=== PATIENT | female | born 1995 | race Caucasian/White ===

== ENCOUNTER 2017-05-24 11:26 | Emergency (ER) | payer MEDICAID ==
[~2017-05-24] VITALS: Ht 162.6 cm; Wt 111.4 kg
[~2017-05-24 11:26] MED LIST: COMP1EAC INH
[2017-05-24 12:19] LABS: BASOPHILS % (AUTO) 0.3 % (0-1); EOSINOPHILS # (AUTO) 0.1 X10'3 (0-0.9); EOSINOPHILS % (AUTO) 1.9 % (0-6); HEMATOCRIT 37.6 % (35.0-45.0); HEMOGLOBIN 12.6 g/dl (12.0-16.0); LYMPHOCYTES # (AUTO) 2.1 X10'3 (1.1-4.8); LYMPHOCYTES % (AUTO) 30.9 % (21-51); MEAN CORPUSCULAR HEMOGLOBIN 25.3 PG (27.0-31.0); MEAN CORPUSCULAR HGB CONC 33.6 % (33.0-36.5); MEAN CORPUSCULAR VOLUME 75.4 FL (78-98); MEAN PLATELET VOLUME 7.1 FL (7.4-10.4); MONOCYTES # (AUTO) 0.5 X10'3 (0-0.9); MONOCYTES % (AUTO) 7.1 % (2-12); NEUTROPHILS # (AUTO) 4.1 X10'3 (1.8-7.7); NEUTROPHILS % (AUTO) 59.8 % (42-75); PLATELET COUNT 276 X10'3 (140-440); RED BLOOD COUNT 4.99 X10'6 (4.20-5.60); RED CELL DISTRIBUTION WIDTH 15.3 % (11.5-14.5); WHITE BLOOD COUNT 6.8 X10'3 (4.5-11.0)
[2017-05-24 12:21] LABS: URINE HCG NEGATIVE (NEG)
[2017-05-24 12:23] LABS: CLARITY,URINE Clear (Clear); COLOR,URINE Yellow (Yellow); GLUCOSE, URINE Negative (Neg); KETONES,URINE Negative (Neg); LEUKOCYTE ESTERASE ,URINE Negative (Neg); NITRITES, URINE Negative (Neg); OCCULT BLOOD,URINE Negative (Neg); PROTEIN,URINE Negative (Neg); UROBILINOGEN,URINE 0.2 E.U/dL (0.2-1.0)
[2017-05-24 12:27] LABS: UA COLLECTION TYPE CLN CATCH MIDSTREAM
[2017-05-24 12:34] LABS: ALANINE AMINOTRANSFERASE 37 U/L (12-78); ALBUMIN 3.4 G/DL (3.4-5.0); ALKALINE PHOSPHATASE 33 IU/L (46-116); ANION GAP 7 (8-16); ASPARTATE AMINO TRANSFERASE 18 U/L (10-37); BILIRUBIN,TOTAL 0.3 MG/DL (0.1-1.0); BLOOD UREA NITROGEN 13 MG/DL (7-18); BUN/CREATININE RATIO 16.3 (6.6-38.0); CALCIUM 8.8 MG/DL (8.5-10.1); CHLORIDE 106 MMOL/L (99-107); GLUCOSE 87 MG/DL (70-104); LIPASE 118 U/L (73-393); SODIUM 139 MMOL/L (135-145); TOTAL CARBON DIOXIDE 26.2 MMOL/L (24-32); TOTAL PROTEIN 6.9 G/DL (6.4-8.2); eGFR 88 ML/MIN
[2017-05-24] MEDS ORDERED: HYDROcodone/acetaminophen 5mg/325mg tablet PO ONE (12:50)
[2017-05-24] MEDS ORDERED: HYDR-3965 PO (13:42)
[2017-05-24 13:51] VITALS: BP 123/60
== END 2017-05-24 14:08 | disposition home or self-care (01) ==
LOC: ER 11:27
DX: N83.202 Unspecified ovarian cyst, left side (principal); R10.32 Left lower quadrant pain; R10.31 Right lower quadrant pain; J45.909 Unspecified asthma, uncomplicated; Z88.1 Allergy status to other antibiotic agents
CPT/HCPCS: 36415; 76830; 76856; 80053; 81003; 81025; 83690; 85025; 85610; 99285

== ENCOUNTER 2018-06-12 17:45 | Emergency (ER) | payer MEDICAID ==
[~2018-06-12] VITALS: Ht 157.5 cm; Wt 110.0 kg
[2018-06-12 18:45] VITALS: BP 118/97
== END 2018-06-12 18:46 | disposition home or self-care (01) ==
LOC: ER 17:46
DX: M25.562 Pain in left knee (principal); J45.909 Unspecified asthma, uncomplicated; Z88.0 Allergy status to penicillin; Z88.1 Allergy status to other antibiotic agents
CPT/HCPCS: 29505; 73564; 99284

== ENCOUNTER 2018-11-07 14:43 | Emergency (ER) | payer MEDICAID ==
[~2018-11-07] VITALS: Ht 162.6 cm; Wt 111.4 kg
[2018-11-07 15:59] LABS: ALANINE AMINOTRANSFERASE 27 U/L (12-78); ALBUMIN 3.7 G/DL (3.4-5.0); ALKALINE PHOSPHATASE 40 IU/L (46-116); ANION GAP 12 (8-16); ASPARTATE AMINO TRANSFERASE 15 U/L (10-37); BILIRUBIN,TOTAL 0.4 MG/DL (0.1-1.0); BLOOD UREA NITROGEN 13 MG/DL (7-18); BUN/CREATININE RATIO 15.7 (6.6-38.0); CALCIUM 9.1 MG/DL (8.5-10.1); CHLORIDE 105 MMOL/L (99-107); CREATININE 0.83 MG/DL (0.40-0.90); GLUCOSE 84 MG/DL (70-104); SODIUM 139 MMOL/L (135-145); TOTAL CARBON DIOXIDE 21.7 MMOL/L (24-32); TOTAL PROTEIN 7.5 G/DL (6.4-8.2); eGFR 84 ML/MIN
[2018-11-07 16:07] LABS: BASOPHILS % (AUTO) 0.3 % (0-1); EOSINOPHILS # (AUTO) 0.1 X10'3 (0-0.9); EOSINOPHILS % (AUTO) 1.2 % (0-6); HEMATOCRIT 45.1 % (35.0-45.0); HEMOGLOBIN 15.2 g/dl (12.0-16.0); LYMPHOCYTES # (AUTO) 2.7 X10'3 (1.1-4.8); LYMPHOCYTES % (AUTO) 38.3 % (21-51); MEAN CORPUSCULAR HEMOGLOBIN 28.3 PG (27.0-31.0); MEAN CORPUSCULAR HGB CONC 33.6 g/dL (33.0-36.5); MEAN CORPUSCULAR VOLUME 84.2 FL (78-98); MEAN PLATELET VOLUME 7.1 FL (7.4-10.4); MONOCYTES # (AUTO) 0.4 X10'3 (0-0.9); MONOCYTES % (AUTO) 6.4 % (2-12); NEUTROPHILS # (AUTO) 3.7 X10'3 (1.8-7.7); NEUTROPHILS % (AUTO) 53.8 % (42-75); PLATELET COUNT 282 X10'3 (140-440); RED BLOOD COUNT 5.36 X10'6 (4.20-5.60); RED CELL DISTRIBUTION WIDTH 13.8 % (11.5-14.5); WHITE BLOOD COUNT 6.9 X10'3 (4.5-11.0)
[2018-11-07] MEDS ORDERED: normal saline 1000ML IV soln IVB ONE (16:10)
[2018-11-07] MEDS ORDERED: morphine 4 MG/ML inj SYRINge IV PRN (16:10)
[2018-11-07] MEDS ORDERED: ondansetron/PF 4mg/2ml inj IV ONE (16:10)
[2018-11-07 16:18] LABS: URINE HCG NEGATIVE (NEG)
[2018-11-07 16:22] LABS: CLARITY,URINE SLIGHTLY CLOUDY (Clear); COLOR,URINE YELLOW (Yellow); GLUCOSE, URINE NEGATIVE (Neg); KETONES,URINE NEGATIVE (Neg); LEUKOCYTE ESTERASE ,URINE NEGATIVE (Neg); NITRITES, URINE NEGATIVE (Neg); OCCULT BLOOD,URINE NEGATIVE (Neg); PH,URINE 7.5 (4.8-8.0); PROTEIN,URINE NEGATIVE (Neg); UROBILINOGEN,URINE 0.2 E.U/dL (0.2-1.0)
[2018-11-07 16:23] LABS: UA COLLECTION TYPE CLN CATCH MIDSTREAM
[2018-11-07 16:29] LABS: BACTERIA,URINE NONE SEEN /HPF (Neg); RBC,URINE NONE SEEN /HPF (0-2); SQUAMOUS EPITHELIAL CELL,UR MODERATE /LPF (FEW); WBC,URINE NONE SEEN /HPF (0-4)
--- NOTE | 2018-11-07 16:30 | NUR ---
PT. OFF TO CT WITH AREA FORESTER VIA W/C
--- NOTE | 2018-11-07 16:38 | NUR ---
PT. BACK FROM CT WITH REPORT WRITER VIA W/C
[2018-11-07] MEDS ORDERED: TRAM50TA2 PO (17:07)
[2018-11-07] MEDS ORDERED: diphenhydrAMINE 50 mg/ml inj IV ONE (17:10)
[2018-11-07 18:11] VITALS: BP 102/62
== END 2018-11-07 18:12 | disposition home or self-care (01) ==
LOC: ER 14:44
DX: R10.32 Left lower quadrant pain (principal); R42 Dizziness and giddiness; R06.02 Shortness of breath; R11.10 Vomiting, unspecified; J45.909 Unspecified asthma, uncomplicated; Z88.0 Allergy status to penicillin; Z88.1 Allergy status to other antibiotic agents; Z91.09 Other allergy status, other than to drugs and biological substances; Z79.899 Other long term (current) drug therapy
CPT/HCPCS: 36415; 74176; 80053; 81001; 81025; 85025; 85610; 96361; 96374; 96375; 99284; J1200; J2270; J2405; J7030

== ENCOUNTER 2019-07-04 16:26 | Emergency (ER) | payer MEDICAID ==
[~2019-07-04] VITALS: Ht 162.6 cm; Wt 115.0 kg
[2019-07-04 17:49] LABS: BASOPHILS % (AUTO) 0.6 % (0-1); EOSINOPHILS # (AUTO) 0.1 X10'3 (0-0.9); HEMATOCRIT 42.9 % (35.0-45.0); HEMOGLOBIN 14.8 g/dl (12.0-16.0); LYMPHOCYTES # (AUTO) 2.2 X10'3 (1.1-4.8); LYMPHOCYTES % (AUTO) 33.8 % (21-51); MEAN CORPUSCULAR HEMOGLOBIN 28.1 PG (27.0-31.0); MEAN CORPUSCULAR HGB CONC 34.4 g/dL (33.0-36.5); MEAN CORPUSCULAR VOLUME 81.9 FL (78-98); MONOCYTES # (AUTO) 0.6 X10'3 (0-0.9); MONOCYTES % (AUTO) 8.6 % (2-12); NEUTROPHILS # (AUTO) 3.6 X10'3 (1.8-7.7); PLATELET COUNT 276 X10'3 (140-440); RED BLOOD COUNT 5.24 X10'6 (4.20-5.60); RED CELL DISTRIBUTION WIDTH 13.3 % (11.5-14.5); WHITE BLOOD COUNT 6.5 X10'3 (4.5-11.0)
[2019-07-04 17:50] LABS: ALANINE AMINOTRANSFERASE 23 U/L (12-78); ALBUMIN 3.5 G/DL (3.4-5.0); ALKALINE PHOSPHATASE 39 IU/L (46-116); ANION GAP 8 (8-16); ASPARTATE AMINO TRANSFERASE 12 U/L (10-37); BILIRUBIN,TOTAL 0.4 MG/DL (0.1-1.0); BLOOD UREA NITROGEN 12 MG/DL (7-18); BUN/CREATININE RATIO 12.4 (6.6-38.0); CHLORIDE 108 MMOL/L (99-107); CREATININE 0.97 MG/DL (0.40-0.90); GLUCOSE 111 MG/DL (70-104); POTASSIUM 3.6 MMOL/L (3.5-5.1); SODIUM 140 MMOL/L (135-145); TOTAL CARBON DIOXIDE 24.3 MMOL/L (24-32); eGFR 69 ML/MIN
[2019-07-04 17:58] LABS: BETA HCG,QUANTITATIVE < 1.0 mIU/ml; LIPASE 134 U/L (73-393)
[2019-07-04 18:16] LABS: URINE HCG NEGATIVE (NEG)
[2019-07-04] MEDS ORDERED: HYDR-3965 PO (18:23)
[2019-07-04] MEDS ORDERED: proCHLORperazine 10 MG/2 ml inj IM ONE (18:25)
[2019-07-04] MEDS ORDERED: morphine 4 MG/ML inj SYRINge IM ONE (18:25)
[2019-07-04 18:41] LABS: CLARITY,URINE CLEAR (Clear); COLOR,URINE YELLOW (Yellow); GLUCOSE, URINE NEGATIVE (Neg); KETONES,URINE NEGATIVE (Neg); LEUKOCYTE ESTERASE ,URINE NEGATIVE (Neg); NITRITES, URINE NEGATIVE (Neg); OCCULT BLOOD,URINE MODERATE (Neg); PH,URINE 5.5 (4.8-8.0); PROTEIN,URINE NEGATIVE (Neg); UROBILINOGEN,URINE 0.2 E.U/dL (0.2-1.0)
[2019-07-04 18:56] LABS: UA COLLECTION TYPE CLN CATCH MIDSTREAM
[2019-07-04 18:58] LABS: RBC,URINE 0-2 /HPF (0-2); WBC,URINE 0-4 /HPF (0-4)
[2019-07-04 18:59] LABS: BACTERIA,URINE NONE SEEN /HPF (Neg); SQUAMOUS EPITHELIAL CELL,UR FEW /LPF (FEW)
[2019-07-04 21:15] VITALS: BP 150/89
== END 2019-07-04 21:16 | disposition home or self-care (01) ==
LOC: ER 16:26
DX: N93.9 Abnormal uterine and vaginal bleeding, unspecified (principal); R19.7 Diarrhea, unspecified; R11.0 Nausea; J45.909 Unspecified asthma, uncomplicated; Z88.0 Allergy status to penicillin; Z91.048 Other nonmedicinal substance allergy status; Z88.1 Allergy status to other antibiotic agents; Z79.899 Other long term (current) drug therapy
CPT/HCPCS: 36415; 80053; 81001; 81025; 83690; 84702; 85025; 96372; 99284; J0780; J2270

== ENCOUNTER 2019-11-30 14:01 | Emergency (ER) | payer MEDICAID ==
[~2019-11-30] VITALS: Ht 162.6 cm; Wt 107.0 kg
[2019-11-30 14:39] LABS: BASOPHILS % (AUTO) 0.4 % (0-1); EOSINOPHILS # (AUTO) 0.1 X10'3 (0-0.9); EOSINOPHILS % (AUTO) 1.3 % (0-6); HEMATOCRIT 42.4 % (35.0-45.0); HEMOGLOBIN 14.3 g/dl (12.0-16.0); LYMPHOCYTES # (AUTO) 2.5 X10'3 (1.1-4.8); LYMPHOCYTES % (AUTO) 35.7 % (21-51); MEAN CORPUSCULAR HEMOGLOBIN 27.7 PG (27.0-31.0); MEAN CORPUSCULAR HGB CONC 33.8 g/dL (33.0-36.5); MEAN CORPUSCULAR VOLUME 82.1 FL (78-98); MONOCYTES # (AUTO) 0.4 X10'3 (0-0.9); MONOCYTES % (AUTO) 5.8 % (2-12); NEUTROPHILS % (AUTO) 56.8 % (42-75); PLATELET COUNT 265 X10'3 (140-440); RED BLOOD COUNT 5.16 X10'6 (4.20-5.60); RED CELL DISTRIBUTION WIDTH 13.3 % (11.5-14.5)
[2019-11-30 14:58] LABS: ALANINE AMINOTRANSFERASE 33 U/L (12-78); ALBUMIN 3.5 G/DL (3.4-5.0); ALKALINE PHOSPHATASE 32 IU/L (46-116); ANION GAP 8 (8-16); ASPARTATE AMINO TRANSFERASE 16 U/L (10-37); BILIRUBIN,TOTAL 0.4 MG/DL (0.1-1.0); BLOOD UREA NITROGEN 15 MG/DL (7-18); BUN/CREATININE RATIO 18.5 (6.6-38.0); CALCIUM 8.8 MG/DL (8.5-10.1); CHLORIDE 105 MMOL/L (99-107); CREATININE 0.81 MG/DL (0.40-0.90); GLUCOSE 86 MG/DL (70-104); LIPASE 144 U/L (73-393); POTASSIUM 3.8 MMOL/L (3.5-5.1); SODIUM 140 MMOL/L (135-145); TOTAL CARBON DIOXIDE 26.8 MMOL/L (24-32); TOTAL PROTEIN 6.9 G/DL (6.4-8.2); eGFR 85 ML/MIN
[2019-11-30] MEDS ORDERED: dexamethasone sod phosphate 10mg/ml inj IV STA (15:01)
[2019-11-30] MEDS ORDERED: proCHLORperazine 10 MG/2 ml inj IV ONE (15:05)
[2019-11-30] MEDS ORDERED: diphenhydrAMINE 50 mg/ml inj IV ONE (15:05)
[2019-11-30] MEDS ORDERED: ketorolac tromethamine 15mg/ml inj. IV ONE (15:05)
[2019-11-30] MEDS ORDERED: normal saline 1000ML IV soln IVB ONE (15:05)
--- NOTE | 2019-11-30 15:53 | NUR ---
PT IS SLEEPING LAYING SUPINE.
[2019-11-30 15:59] LABS: CLARITY,URINE CLOUDY (Clear); COLOR,URINE YELLOW (Yellow); GLUCOSE, URINE NEGATIVE (Neg); KETONES,URINE NEGATIVE (Neg); LEUKOCYTE ESTERASE ,URINE NEGATIVE (Neg); NITRITES, URINE NEGATIVE (Neg); OCCULT BLOOD,URINE NEGATIVE (Neg); PROTEIN,URINE NEGATIVE (Neg); URINE HCG NEGATIVE (NEG); UROBILINOGEN,URINE 0.2 E.U/dL (0.2-1.0)
[2019-11-30 16:12] LABS: UA COLLECTION TYPE CLN CATCH MIDSTREAM
[2019-11-30 16:16] LABS: BACTERIA,URINE 2+ /HPF (Neg); MUCUS STRANDS MANY /LPF (Neg); RBC,URINE NONE SEEN /HPF (0-2); SQUAMOUS EPITHELIAL CELL,UR FEW /LPF (FEW)
[2019-11-30 16:31] VITALS: BP 130/77
== END 2019-11-30 16:28 | disposition home or self-care (01) ==
LOC: ER 14:02
DX: G43.909 Migraine, unspecified, not intractable, without status migrainosus (principal); J45.909 Unspecified asthma, uncomplicated; K21.9 Gastro-esophageal reflux disease without esophagitis; R42 Dizziness and giddiness; R11.2 Nausea with vomiting, unspecified; R07.89 Other chest pain; H53.8 Other visual disturbances; Z98.890 Other specified postprocedural states; Z88.0 Allergy status to penicillin; Z88.1 Allergy status to other antibiotic agents; Z79.899 Other long term (current) drug therapy; Z91.09 Other allergy status, other than to drugs and biological substances
CPT/HCPCS: 36415; 80053; 81001; 81025; 83690; 85025; 87088; 96361; 96374; 96375; 99284; J0780; J1100; J1200; J1885; J7030

== ENCOUNTER 2020-02-23 11:24 | Emergency (ER) | payer MEDICAID ==
[~2020-02-23] VITALS: Ht 162.6 cm; Wt 115.0 kg
[2020-02-23] MEDS ORDERED: epiNEPHrine 1 mg/ml inj ONE (11:36)
[2020-02-23] MEDS ORDERED: epiNEPHrine 1 mg/ml inj IM STA (11:38)
[2020-02-23] MEDS ORDERED: methylPREDNISolone sod succ 125mg/2ml vial IM ONE (11:40)
[2020-02-23] MEDS ORDERED: EPIN0.3P3 IM (11:47)
[2020-02-23 13:21] VITALS: BP 130/76
== END 2020-02-23 13:25 | disposition home or self-care (01) ==
LOC: ER 11:24
DX: R22.0 Localized swelling, mass and lump, head (principal); T39.315A Adverse effect of propionic acid derivatives, initial encounter; G43.909 Migraine, unspecified, not intractable, without status migrainosus; J45.909 Unspecified asthma, uncomplicated; K21.9 Gastro-esophageal reflux disease without esophagitis; Z98.890 Other specified postprocedural states; Z88.0 Allergy status to penicillin; Z88.1 Allergy status to other antibiotic agents; Z79.899 Other long term (current) drug therapy; Y92.89 Other specified places as the place of occurrence of the external cause
CPT/HCPCS: 96372; 99284; J0171; J2930; 99283

== ENCOUNTER 2020-05-25 17:34 | Emergency (ER) | payer MEDICAID ==
[~2020-05-25] VITALS: Ht 162.6 cm; Wt 115.0 kg
[~2020-05-25 17:34] MED LIST changes: +EPIN0.3P3 IM
[2020-05-25] MEDS ORDERED: normal saline 1000ml 1,000 ML IV ONE (18:40)
[2020-05-25] MEDS ORDERED: ondansetron/PF 4mg/2ml inj IV ONE (18:40)
[2020-05-25 19:00] LABS: BASOPHILS % (AUTO) 0.6 % (0-1); EOSINOPHILS # (AUTO) 0.1 X10'3 (0-0.9); EOSINOPHILS % (AUTO) 1.4 % (0-6); HEMATOCRIT 44.6 % (35.0-45.0); HEMOGLOBIN 15.1 g/dl (12.0-16.0); LYMPHOCYTES # (AUTO) 2.7 X10'3 (1.1-4.8); LYMPHOCYTES % (AUTO) 36.5 % (21-51); MEAN CORPUSCULAR HEMOGLOBIN 28.1 PG (27.0-31.0); MEAN CORPUSCULAR HGB CONC 33.9 g/dL (33.0-36.5); MEAN CORPUSCULAR VOLUME 82.8 FL (78-98); MEAN PLATELET VOLUME 7.1 FL (7.4-10.4); MONOCYTES # (AUTO) 0.4 X10'3 (0-0.9); NEUTROPHILS # (AUTO) 4.1 X10'3 (1.8-7.7); NEUTROPHILS % (AUTO) 55.5 % (42-75); PLATELET COUNT 285 X10'3 (140-440); RED BLOOD COUNT 5.38 X10'6 (4.20-5.60); RED CELL DISTRIBUTION WIDTH 13.2 % (11.5-14.5); WHITE BLOOD COUNT 7.4 X10'3 (4.5-11.0)
[2020-05-25 19:08] LABS: ALBUMIN 3.6 G/DL (3.4-5.0); ANION GAP 7 (8-16); BLOOD UREA NITROGEN 15 MG/DL (7-18); BUN/CREATININE RATIO 15.8 (6.6-38.0); CALCIUM 9.1 MG/DL (8.5-10.1); CHLORIDE 106 MMOL/L (99-107); CREATININE 0.95 MG/DL (0.40-0.90); GLUCOSE 89 MG/DL (70-104); SODIUM 140 MMOL/L (135-145); TOTAL CARBON DIOXIDE 27.5 MMOL/L (24-32); eGFR 71 ML/MIN
[2020-05-25] MEDS ORDERED: ONDA4TAB12 PO (19:27)
[2020-05-25 19:34] LABS: URINE HCG NEGATIVE (NEG)
[2020-05-25 19:35] LABS: CLARITY,URINE CLEAR (Clear); COLOR,URINE YELLOW (Yellow); GLUCOSE, URINE NEGATIVE (Neg); KETONES,URINE NEGATIVE (Neg); LEUKOCYTE ESTERASE ,URINE NEGATIVE (Neg); NITRITES, URINE NEGATIVE (Neg); OCCULT BLOOD,URINE TRACE-INTACT (Neg); PROTEIN,URINE NEGATIVE (Neg); UROBILINOGEN,URINE 0.2 E.U/dL (0.2-1.0)
[2020-05-25 19:36] LABS: UA COLLECTION TYPE CLN CATCH MIDSTREAM
[2020-05-25 19:44] LABS: BACTERIA,URINE NONE SEEN /HPF (Neg); MUCUS STRANDS NONE SEEN /LPF (Neg); RBC,URINE 0-2 /HPF (0-2); SQUAMOUS EPITHELIAL CELL,UR FEW /LPF (FEW); WBC,URINE 0-4 /HPF (0-4)
[2020-05-25 20:30] VITALS: BP 134/88
== END 2020-05-25 20:54 | disposition home or self-care (01) ==
LOC: ER 20:34
DX: R11.2 Nausea with vomiting, unspecified (principal); R19.7 Diarrhea, unspecified; G43.909 Migraine, unspecified, not intractable, without status migrainosus; J45.909 Unspecified asthma, uncomplicated; K21.9 Gastro-esophageal reflux disease without esophagitis; Z86.2 Personal history of diseases of the blood and blood-forming organs and certain disorders involving the immune mechanism; Z88.0 Allergy status to penicillin; Z88.2 Allergy status to sulfonamides; Z91.048 Other nonmedicinal substance allergy status; Z79.899 Other long term (current) drug therapy
CPT/HCPCS: 36415; 76937; 80048; 81001; 81025; 85025; 93005; 96361; 96374; 99284; J2405; J7030; 99285

== ENCOUNTER 2020-08-18 16:51 | Emergency (ER) | payer MEDICAID ==
[~2020-08-18] VITALS: Ht 162.6 cm; Wt 115.0 kg
[~2020-08-18 16:51] MED LIST changes: +ONDA4TAB12 PO
[2020-08-18] MEDS ORDERED: ketorolac trometh inj. 60 MG/2 ML VIAL IM ONE (18:05)
[2020-08-18] MEDS ORDERED: dicyclomine 10 MG capsule PO ONE (18:05)
[2020-08-18] MEDS ORDERED: ondansetron 4mg rapidly disintigrating tab PO ONE (18:10)
[2020-08-18 18:45] LABS: BASOPHILS % (AUTO) 0.2 % (0-1); EOSINOPHILS # (AUTO) 0.1 X10'3 (0-0.9); EOSINOPHILS % (AUTO) 0.9 % (0-6); HEMATOCRIT 41.1 % (35.0-45.0); HEMOGLOBIN 14.1 g/dl (12.0-16.0); LYMPHOCYTES # (AUTO) 2.7 X10'3 (1.1-4.8); MEAN CORPUSCULAR HEMOGLOBIN 28.3 PG (27.0-31.0); MEAN CORPUSCULAR HGB CONC 34.4 g/dL (33.0-36.5); MEAN CORPUSCULAR VOLUME 82.2 FL (78-98); MEAN PLATELET VOLUME 7.2 FL (7.4-10.4); MONOCYTES # (AUTO) 0.6 X10'3 (0-0.9); MONOCYTES % (AUTO) 6.3 % (2-12); NEUTROPHILS % (AUTO) 63.6 % (42-75); PLATELET COUNT 263 X10'3 (140-440); RED CELL DISTRIBUTION WIDTH 12.9 % (11.5-14.5); WHITE BLOOD COUNT 9.5 X10'3 (4.5-11.0)
[2020-08-18 18:53] LABS: ALANINE AMINOTRANSFERASE 23 U/L (12-78); ALBUMIN 3.4 G/DL (3.4-5.0); ALKALINE PHOSPHATASE 46 IU/L (46-116); ANION GAP 10 (8-16); ASPARTATE AMINO TRANSFERASE 14 U/L (10-37); BILIRUBIN,TOTAL 0.3 MG/DL (0.1-1.0); BLOOD UREA NITROGEN 16 MG/DL (7-18); BUN/CREATININE RATIO 12.7 (6.6-38.0); CALCIUM 9.3 MG/DL (8.5-10.1); CHLORIDE 105 MMOL/L (99-107); CREATININE 1.26 MG/DL (0.40-0.90); GLUCOSE 92 MG/DL (70-104); LIPASE 100 U/L (73-393); POTASSIUM 3.6 MMOL/L (3.5-5.1); SODIUM 140 MMOL/L (135-145); TOTAL PROTEIN 6.9 G/DL (6.4-8.2); eGFR 51 ML/MIN
--- NOTE | 2020-08-18 18:59 | NUR ---
Pt resting in bed, medicated and gave blanket and vitals taken.
--- NOTE | 2020-08-18 19:00 | NUR ---
US tech with pt
[2020-08-18] MEDS ORDERED: HYDROcodone/acetaminophen 5mg/325mg tablet PO ONE (19:20)
[2020-08-18 19:48] LABS: URINE HCG NEGATIVE (NEG)
[2020-08-18 20:04] LABS: CLARITY,URINE CLEAR (Clear); COLOR,URINE YELLOW (Yellow); GLUCOSE, URINE NEGATIVE (Neg); KETONES,URINE NEGATIVE (Neg); LEUKOCYTE ESTERASE ,URINE NEGATIVE (Neg); NITRITES, URINE NEGATIVE (Neg); OCCULT BLOOD,URINE NEGATIVE (Neg); PH,URINE 5.5 (4.8-8.0); PROTEIN,URINE NEGATIVE (Neg); UROBILINOGEN,URINE 0.2 E.U/dL (0.2-1.0)
[2020-08-18 20:12] LABS: UA COLLECTION TYPE CLN CATCH MIDSTREAM
[2020-08-18] MEDS ORDERED: HYDR-3965 PO (20:34)
[2020-08-18] MEDS ORDERED: ONDA4TAB6 PO (20:34)
[2020-08-18 20:56] VITALS: BP 151/74
== END 2020-08-18 20:57 | disposition home or self-care (01) ==
LOC: ER 16:51
DX: E28.2 Polycystic ovarian syndrome (principal); R10.30 Lower abdominal pain, unspecified; R11.0 Nausea; G43.909 Migraine, unspecified, not intractable, without status migrainosus; J45.909 Unspecified asthma, uncomplicated; K21.9 Gastro-esophageal reflux disease without esophagitis; Z86.2 Personal history of diseases of the blood and blood-forming organs and certain disorders involving the immune mechanism; Z98.890 Other specified postprocedural states; Z88.0 Allergy status to penicillin; Z88.1 Allergy status to other antibiotic agents; Z88.8 Allergy status to other drugs, medicaments and biological substances; Z79.899 Other long term (current) drug therapy
CPT/HCPCS: 36415; 76830; 76856; 80053; 81003; 81025; 83690; 85025; 93976; 96372; 99284; J1885

== ENCOUNTER 2021-01-28 09:46 | Emergency (ER) | payer MEDICAID ==
[~2021-01-28] VITALS: Ht 162.6 cm; Wt 109.8 kg
[~2021-01-28 09:46] MED LIST changes: +ONDA4TAB6 PO
[2021-01-28] MEDS ORDERED: normal saline 1000ML IV soln IVB ONE (10:00)
[2021-01-28] MEDS ORDERED: ondansetron/PF 4mg/2ml inj IV ONE (10:00)
[2021-01-28] MEDS ORDERED: morphine 4 MG/ML inj SYRINge IV PRN (10:00)
[2021-01-28 10:36] LABS: BASOPHILS % (AUTO) 0.3 % (0-1); EOSINOPHILS % (AUTO) 0.1 % (0-6); HEMATOCRIT 41.7 % (35.0-45.0); HEMOGLOBIN 14.4 g/dl (12.0-16.0); LYMPHOCYTES # (AUTO) 1.3 X10'3 (1.1-4.8); LYMPHOCYTES % (AUTO) 13.2 % (21-51); MEAN CORPUSCULAR HEMOGLOBIN 28.4 PG (27.0-31.0); MEAN CORPUSCULAR HGB CONC 34.6 g/dL (33.0-36.5); MEAN CORPUSCULAR VOLUME 81.9 FL (78-98); MEAN PLATELET VOLUME 7.3 FL (7.4-10.4); MONOCYTES # (AUTO) 0.4 X10'3 (0-0.9); MONOCYTES % (AUTO) 4.1 % (2-12); NEUTROPHILS # (AUTO) 8.4 X10'3 (1.8-7.7); NEUTROPHILS % (AUTO) 82.3 % (42-75); PLATELET COUNT 296 X10'3 (140-440); RED BLOOD COUNT 5.09 X10'6 (4.20-5.60); RED CELL DISTRIBUTION WIDTH 13.2 % (11.5-14.5); WHITE BLOOD COUNT 10.2 X10'3 (4.5-11.0)
[2021-01-28] MEDS ORDERED: LIDOcaine Viscous 15ml cup MM ONE (11:00)
[2021-01-28] MEDS ORDERED: sucralfate 1 gm tablet PO ONE (11:00)
[2021-01-28] MEDS ORDERED: mag hydrox/Alum hydrox/simeth 30ml oral suspension PO ONE (11:00)
[2021-01-28 11:10] LABS: ALANINE AMINOTRANSFERASE 87 U/L (12-78); ALBUMIN 3.6 G/DL (3.4-5.0); ALBUMIN/GLOBULIN RATIO 1.1 (1.1-1.5); ALKALINE PHOSPHATASE 60 IU/L (46-116); ANION GAP 11 (8-16); ASPARTATE AMINO TRANSFERASE 77 U/L (10-37); BILIRUBIN,TOTAL 0.7 MG/DL (0.1-1.0); BLOOD UREA NITROGEN 13 MG/DL (7-18); BUN/CREATININE RATIO 15.7 (6.6-38.0); CALCIUM 8.8 MG/DL (8.5-10.1); CHLORIDE 105 MMOL/L (99-107); CREATININE 0.83 MG/DL (0.40-0.90); GLUCOSE 110 MG/DL (70-104); POTASSIUM 3.8 MMOL/L (3.5-5.1); SODIUM 138 MMOL/L (135-145); TOTAL CARBON DIOXIDE 21.6 MMOL/L (24-32); eGFR 82 ML/MIN
[2021-01-28 11:11] LABS: LIPASE 81 U/L (73-393)
--- NOTE | 2021-01-28 11:24 | NUR ---
notified davian cross that pt is c/o abd pain but denying the morphine ,pt want torodol for pain ,as per pa he is going to see the pt and then put the orders.
[2021-01-28] MEDS ORDERED: famotidine/PF 10 mg/ml inj IV ONE (11:25)
[2021-01-28] MEDS ORDERED: ketorolac trometh. 30mg/ml inj. IV ONE (11:25)
[2021-01-28 11:29] LABS: URINE HCG NEGATIVE (NEG)
[2021-01-28 11:32] LABS: CLARITY,URINE CLEAR (Clear); COLOR,URINE YELLOW (Yellow); UA COLLECTION TYPE CLN CATCH MIDSTREAM
[2021-01-28 11:34] LABS: GLUCOSE, URINE NEGATIVE (Neg); KETONES,URINE NEGATIVE (Neg); NITRITES, URINE NEGATIVE (Neg); OCCULT BLOOD,URINE MODERATE (Neg); PROTEIN,URINE NEGATIVE (Neg)
[2021-01-28 11:35] LABS: LEUKOCYTE ESTERASE ,URINE NEGATIVE (Neg)
[2021-01-28 11:37] LABS: BACTERIA,URINE FEW /HPF (Neg); MUCUS STRANDS MODERATE /LPF (Neg); SQUAMOUS EPITHELIAL CELL,UR MANY /LPF (FEW); WBC,URINE 0-4 /HPF (0-4)
[2021-01-28 11:38] LABS: HYALINE CASTS 0-3 /LPF (NEGATIVE)
[2021-01-28 13:18] VITALS: BP 128/81
== END 2021-01-28 13:26 | disposition home or self-care (01) ==
LOC: ER 09:46
DX: R10.10 Upper abdominal pain, unspecified (principal); K21.9 Gastro-esophageal reflux disease without esophagitis; Z86.2 Personal history of diseases of the blood and blood-forming organs and certain disorders involving the immune mechanism; Z98.890 Other specified postprocedural states; Z88.0 Allergy status to penicillin; Z88.1 Allergy status to other antibiotic agents; Z88.8 Allergy status to other drugs, medicaments and biological substances; Z79.899 Other long term (current) drug therapy
CPT/HCPCS: 36415; 71045; 74176; 80053; 81001; 81025; 83690; 85025; 96361; 96374; 96375; 99285; J1885; J2405; J3490; J7030; J2270

== ENCOUNTER 2021-09-21 17:17 | Emergency (ER) | payer MEDICAID ==
[~2021-09-21] VITALS: Ht 162.6 cm; Wt 111.4 kg
[2021-09-21 17:23] VITALS: BP 126/76
[2021-09-21 18:00] LABS: BASOPHILS % (AUTO) 0.4 % (0-1); EOSINOPHILS # (AUTO) 0.1 X10'3 (0-0.9); EOSINOPHILS % (AUTO) 0.7 % (0-6); HEMATOCRIT 39.4 % (35.0-45.0); HEMOGLOBIN 13.5 g/dl (12.0-16.0); LYMPHOCYTES # (AUTO) 2.4 X10'3 (1.1-4.8); LYMPHOCYTES % (AUTO) 28.6 % (21-51); MEAN CORPUSCULAR HEMOGLOBIN 27.7 PG (27.0-31.0); MEAN CORPUSCULAR HGB CONC 34.3 g/dL (33.0-36.5); MEAN CORPUSCULAR VOLUME 80.8 FL (78-98); MEAN PLATELET VOLUME 7.2 FL (7.4-10.4); MONOCYTES # (AUTO) 0.4 X10'3 (0-0.9); MONOCYTES % (AUTO) 4.6 % (2-12); NEUTROPHILS # (AUTO) 5.6 X10'3 (1.8-7.7); NEUTROPHILS % (AUTO) 65.7 % (42-75); PLATELET COUNT 293 X10'3 (140-440); RED BLOOD COUNT 4.87 X10'6 (4.20-5.60); RED CELL DISTRIBUTION WIDTH 12.8 % (11.5-14.5); WHITE BLOOD COUNT 8.5 X10'3 (4.5-11.0)
[2021-09-21 18:03] LABS: CLARITY,URINE CLEAR (Clear); COLOR,URINE YELLOW (Yellow); GLUCOSE, URINE NEGATIVE (Neg); KETONES,URINE NEGATIVE (Neg); LEUKOCYTE ESTERASE ,URINE NEGATIVE (Neg); NITRITES, URINE NEGATIVE (Neg); OCCULT BLOOD,URINE NEGATIVE (Neg); PROTEIN,URINE NEGATIVE (Neg); UROBILINOGEN,URINE 0.2 E.U/dL (0.2-1.0)
[2021-09-21 18:04] LABS: UA COLLECTION TYPE CLN CATCH MIDSTREAM; URINE HCG NEGATIVE (NEG)
[2021-09-21 18:09] LABS: ALANINE AMINOTRANSFERASE 21 U/L (12-78); ALBUMIN 3.6 G/DL (3.4-5.0); ALBUMIN/GLOBULIN RATIO 1.1 (1.1-1.5); ALKALINE PHOSPHATASE 37 IU/L (46-116); ANION GAP 9 (8-16); ASPARTATE AMINO TRANSFERASE 10 U/L (10-37); BILIRUBIN,TOTAL 0.3 MG/DL (0.1-1.0); BLOOD UREA NITROGEN 19 MG/DL (7-18); BUN/CREATININE RATIO 20.9 (6.6-38.0); CALCIUM 8.8 MG/DL (8.5-10.1); CHLORIDE 106 MMOL/L (99-107); CREATININE 0.91 MG/DL (0.40-0.90); GLUCOSE 87 MG/DL (70-104); LIPASE 109 U/L (73-393); POTASSIUM 3.2 MMOL/L (3.5-5.1); SODIUM 141 MMOL/L (135-145); TOTAL CARBON DIOXIDE 26.1 MMOL/L (24-32); TOTAL PROTEIN 6.8 G/DL (6.4-8.2); eGFR 74 ML/MIN
[2021-09-21] MEDS ORDERED: potassium Cl 20 mEq SR tablet PO ONE (19:30)
[2021-09-21] MEDS ORDERED: mag hydrox/Alum hydrox/simeth 30ml oral suspension PO ONE (19:50)
[2021-09-21] MEDS ORDERED: LIDOcaine Viscous 15ml cup MM PRN (19:50)
[2021-09-21] MEDS ORDERED: pantoprazole 40mg Tablet.DR PO SCH (19:50)
[2021-09-21] MEDS ORDERED: ONDA4TAB12 PO (21:15)
[2021-09-21] MEDS ORDERED: LEVO750T46 PO (21:15)
[2021-09-21] MEDS ORDERED: METR-159 PO (21:15)
[2021-09-21] MEDS ORDERED: metroNIDAZOLE 500mg tablet PO ONE (21:15)
[2021-09-21] MEDS ORDERED: levoFLOXACIN 250mg tablet PO ONE (21:15)
[2021-09-25] MEDS ORDERED: OMEP20CA16 PO (13:05)
[2021-09-25] MEDS ORDERED: MONT-40 PO (13:05)
[2021-09-25] MEDS ORDERED: ONDA-103 PO (13:06)
== END 2021-09-21 22:23 | disposition home or self-care (01) ==
LOC: ER 17:18
DX: K81.0 Acute cholecystitis (principal); K21.9 Gastro-esophageal reflux disease without esophagitis; D64.9 Anemia, unspecified; J45.909 Unspecified asthma, uncomplicated; G43.909 Migraine, unspecified, not intractable, without status migrainosus; Z88.0 Allergy status to penicillin; Z88.1 Allergy status to other antibiotic agents; Z79.899 Other long term (current) drug therapy
CPT/HCPCS: 36415; 76700; 80053; 81003; 81025; 83690; 85025; 99283; 99284

== ENCOUNTER 2021-09-26 06:40 | Day surgery (SDC) | payer MEDICAID ==
[2021-09-25 13:08] LABS: BASOPHILS % (AUTO) 0.2 % (0-1); EOSINOPHILS % (AUTO) 0.6 % (0-6); LYMPHOCYTES % (AUTO) 29.5 % (21-51); MEAN CORPUSCULAR HEMOGLOBIN 27.1 PG (27.0-31.0); MEAN CORPUSCULAR HGB CONC 33.9 g/dL (33.0-36.5); MEAN PLATELET VOLUME 7.1 FL (7.4-10.4); MONOCYTES # (AUTO) 0.4 X10'3 (0-0.9); MONOCYTES % (AUTO) 6.5 % (2-12); NEUTROPHILS # (AUTO) 4.3 X10'3 (1.8-7.7); NEUTROPHILS % (AUTO) 63.2 % (42-75); PRE OP HEMATOCRIT 42.1 % (35.0-45.0); PRE OP HEMOGLOBIN 14.3 g/dL (12.0-16.0); PRE OP PLATELET COUNT 281 X10'3 (140-440); RED BLOOD COUNT 5.27 X10'6 (4.20-5.60); RED CELL DISTRIBUTION WIDTH 13.1 % (11.5-14.5)
[2021-09-25 13:23] LABS: ALBUMIN 3.8 G/DL (3.4-5.0); ALBUMIN/GLOBULIN RATIO 1.2 (1.1-1.5); ALKALINE PHOSPHATASE 33 IU/L (46-116); BLOOD UREA NITROGEN 15 MG/DL (7-18); BUN/CREATININE RATIO 15.6 (6.6-38.0); CALCIUM 8.8 MG/DL (8.5-10.1); CHLORIDE 107 MMOL/L (99-107); CREATININE 0.96 MG/DL (0.40-0.90); PRE OP ALT 24 U/L (30-65); PRE OP ANION GAP 5 (8-16); PRE OP AST 13 U/L (10-37); PRE OP BILIRUB, TOTAL 0.5 MG/DL (0.0-1.0); PRE OP GLUCOSE 92 MG/DL (70-104); PRE OP POTASSIUM 3.8 MMOL/L (3.4-5.1); PRE OP SODIUM 138 MMOL/L (135-145); TOTAL CARBON DIOXIDE 26.2 MMOL/L (24-32); eGFR 69 ML/MIN
[~2021-09-26] VITALS: Ht 162.6 cm; Wt 112.5 kg
[2021-09-26] VITALS (18 sets, daily range): BP systolic 134–160; BP diastolic 71–109
[~2021-09-26 06:40] MED LIST changes: -COMP1EAC INH; -EPIN0.3P3 IM; +LEVO750T46 PO; +METR-159 PO; +MONT-40 PO; +OMEP20CA16 PO; +ONDA-103 PO; -ONDA4TAB12 PO; -ONDA4TAB6 PO; +clindamycin-Cleocin 900mg/D5W 50 ML IV ONE; +famotidine 20mg tablet PO ONE; +ringers solution, lacted 1,000 ML IV SCH
[2021-09-26] MEDS ORDERED: propofol inj 0 ML IV ONE (09:09)
[2021-09-26] MEDS ORDERED: LIDOcaine 2% (20mg/ml) 5ml vial ONE (09:09)
[2021-09-26] MEDS ORDERED: fentaNYL/PF 50MCG/1 ML 2ML syringe IV PRN (10:20)
[2021-09-26] MEDS ORDERED: morphine 2 MG/ML inj. syringe IV PRN (10:20)
[2021-09-26] MEDS ORDERED: hydrALAZINE 20mg/ml inj. IV PRN (10:20)
[2021-09-26] MEDS ORDERED: ondansetron/PF 4mg/2ml inj IV PRN (10:20)
[2021-09-26] MEDS ORDERED: morphine 4 MG/ML inj SYRINge IV PRN (10:20)
[2021-09-26] MEDS ORDERED: labetalol 20mg/4ml (5mg/ml) syringe IV PRN (10:20)
[2021-09-26] MEDS ORDERED: ringers solution, lacted 1,000 ML IV SCH (10:20)
[2021-09-26] MEDS ORDERED: BUPIVAcaine/PF 2.5 mg/ml (0.25%) 30ml vial ONE (10:21)
[2021-09-26] MEDS ORDERED: fentaNYL/PF 50MCG/1 ML 2ML syringe ONE (10:28)
[2021-09-26] MEDS ORDERED: glycopyrrolate 0.2mg/ml inj ONE (10:29)
[2021-09-26] MEDS ORDERED: neostigmine methylsulfate 1 MG/ML 10ml vial ONE (10:29)
[2021-09-26] MEDS ORDERED: ondansetron/PF 4mg/2ml inj ONE (10:29)
[2021-09-26] MEDS ORDERED: midazolam 1 mg/ML 2ml injection ONE (10:29)
[2021-09-26] MEDS ORDERED: rocuronium 10mg/ml inj IV ONE (10:29)
[2021-09-26] MEDS ORDERED: sevoflurane 250ml liquid IH ONE (10:33)
[2021-09-26] MEDS ORDERED: dexamethasone sod phosphate 10mg/ml inj ONE (10:33)
--- NOTE | 2021-09-26 11:37 | NUR ---
Received from OR via [facility], accompanied by Anesthesiologist DR TURNER and report given by Anesthesiologist AND RAMP JOCKEY. PT GROANING, DR LEONARDA JOVEL GAVE PT 25MCG FENTANYL W/IMPROVEMENT IN PAIN. ABDOMEN W 3/LAP SITES CDI. Addendum: 09/26/21 at 1158 by Kesha Kumar RN Amended: Links added.
[2021-09-26] MEDS: fentaNYL/PF 50MCG/1 ML 2ML syringe IV PRN ×2 (11:48→12:25)
[2021-09-26] MEDS ORDERED: HYDROcodone/acetaminophen 10/325mg tab PO ONE (13:25)
--- NOTE | 2021-09-26 14:37 | NUR ---
PT UP AND ABLE TO AMBULATE SAFELY, PAIN UNDER CONTROL. D/C INSTRUCTIONS GIVEN AND GONE OVER W/PT WHO VERBALIZED UNDERSTANDING. PT D/CD TO HOME VIA W/C TO PRIVATE VEHICLE W/O INCIDENT. Addendum: 09/26/21 at 1506 by Kesha Kumar RN Amended: Links added.
== END 2021-09-26 14:37 | disposition home or self-care (01) ==
LOC: PAS 06:40
PROVIDERS: ATTEND Surgery
DX: K80.12 Calculus of gallbladder with acute and chronic cholecystitis without obstruction (principal); J45.909 Unspecified asthma, uncomplicated; G43.909 Migraine, unspecified, not intractable, without status migrainosus; K21.9 Gastro-esophageal reflux disease without esophagitis; E66.01 Morbid (severe) obesity due to excess calories; Z68.41 Body mass index [BMI] 40.0-44.9, adult; Z88.0 Allergy status to penicillin; Z91.09 Other allergy status, other than to drugs and biological substances; Z88.1 Allergy status to other antibiotic agents; Z98.890 Other specified postprocedural states; Z20.822 Contact with and (suspected) exposure to COVID-19
CPT/HCPCS: 36415; 47562; 80053; 82948; 85025; 87635; C9803; J1100; J2250; J2405; J2710; J3010; J3490; J7030; J7120; Z7506; Z7508; Z7512; A4215; A4618; A7000; J2704

== ENCOUNTER 2022-05-01 16:24 | Emergency (ER) | payer MEDICAID ==
[~2022-05-01] VITALS: Ht 162.6 cm; Wt 106.8 kg
[~2022-05-01 16:24] MED LIST changes: -LEVO750T46 PO; -METR-159 PO; -clindamycin-Cleocin 900mg/D5W 50 ML IV ONE; -famotidine 20mg tablet PO ONE; -ringers solution, lacted 1,000 ML IV SCH
[2022-05-01 16:40] VITALS: BP 130/79
== END 2022-05-01 19:00 | disposition home or self-care (01) ==
LOC: ER 16:24
DX: R05.9 Cough, unspecified (principal); G43.909 Migraine, unspecified, not intractable, without status migrainosus; J45.909 Unspecified asthma, uncomplicated; K21.9 Gastro-esophageal reflux disease without esophagitis; Z88.0 Allergy status to penicillin; Z88.1 Allergy status to other antibiotic agents; Z91.09 Other allergy status, other than to drugs and biological substances
CPT/HCPCS: 99281

== ENCOUNTER 2022-06-14 17:51 | Emergency (ER) | payer MEDICAID ==
[~2022-06-14] VITALS: Ht 162.6 cm; Wt 101.0 kg
[2022-06-14 17:54] VITALS: BP 127/86
[2022-06-14 18:33] LABS: URINE HCG NEGATIVE (NEG)
[2022-06-14 18:36] LABS: CLARITY,URINE CLEAR (Clear); COLOR,URINE YELLOW (Yellow); GLUCOSE, URINE NEGATIVE (Neg); KETONES,URINE NEGATIVE (Neg); LEUKOCYTE ESTERASE ,URINE NEGATIVE (Neg); NITRITES, URINE NEGATIVE (Neg); OCCULT BLOOD,URINE SMALL (Neg); PROTEIN,URINE NEGATIVE (Neg); UA COLLECTION TYPE CLN CATCH MIDSTREAM; UROBILINOGEN,URINE 0.2 E.U/dL (0.2-1.0)
[2022-06-14 18:47] LABS: BACTERIA,URINE NONE SEEN /HPF (Neg); MUCUS STRANDS NONE SEEN /LPF (Neg); RBC,URINE 0-2 /HPF (0-2); SQUAMOUS EPITHELIAL CELL,UR FEW /LPF (FEW); WBC,URINE NONE SEEN /HPF (0-4)
[2022-06-14] MEDS ORDERED: CYCL-1 PO (18:59)
[2022-06-14] MEDS ORDERED: IBUP-1986 PO (18:59)
[2022-06-14] MEDS ORDERED: ketorolac trometh inj. 60 MG/2 ML VIAL IM ONE (19:05)
[2022-06-14] MEDS ORDERED: cyclobenzaprine 10mg tablet PO ONE (19:05)
== END 2022-06-14 19:22 | disposition home or self-care (01) ==
LOC: ER 17:52
DX: S29.019A Strain of muscle and tendon of unspecified wall of thorax, initial encounter (principal); G43.909 Migraine, unspecified, not intractable, without status migrainosus; J45.909 Unspecified asthma, uncomplicated; K21.9 Gastro-esophageal reflux disease without esophagitis; Z86.2 Personal history of diseases of the blood and blood-forming organs and certain disorders involving the immune mechanism; Z88.0 Allergy status to penicillin; Z88.1 Allergy status to other antibiotic agents; Z88.8 Allergy status to other drugs, medicaments and biological substances
CPT/HCPCS: 81001; 81025; 96372; 99283; J1885

== ENCOUNTER 2022-08-12 15:51 | Emergency (ER) | payer MEDICAID ==
[~2022-08-12] VITALS: Ht 162.6 cm; Wt 111.4 kg
[~2022-08-12 15:51] MED LIST changes: +CYCL-1 PO; +IBUP-1986 PO
[2022-08-12 16:48] LABS: URINE HCG NEGATIVE (NEG)
[2022-08-12 17:04] LABS: CLARITY,URINE SLIGHTLY CLOUDY (Clear); COLOR,URINE YELLOW (Yellow); GLUCOSE, URINE NEGATIVE (Neg); KETONES,URINE NEGATIVE (Neg); LEUKOCYTE ESTERASE ,URINE NEGATIVE (Neg); NITRITES, URINE NEGATIVE (Neg); OCCULT BLOOD,URINE NEGATIVE (Neg); PH,URINE 5.5 (4.8-8.0); PROTEIN,URINE NEGATIVE (Neg); UROBILINOGEN,URINE 0.2 E.U/dL (0.2-1.0)
[2022-08-12 17:10] LABS: UA COLLECTION TYPE VOIDED
[2022-08-12 17:11] LABS: MUCUS STRANDS FEW /LPF (Neg); SQUAMOUS EPITHELIAL CELL,UR MANY /LPF (FEW)
[2022-08-12 17:12] LABS: BACTERIA,URINE FEW /HPF (Neg); RBC,URINE 0-2 /HPF (0-2); WBC,URINE 0-4 /HPF (0-4)
[2022-08-12] MEDS ORDERED: METR-159 PO (18:55)
[2022-08-12] MEDS ORDERED: IBUP-1986 PO (19:07)
[2022-08-12] MEDS ORDERED: metroNIDAZOLE 500mg tablet PO ONE (19:10)
[2022-08-12] MEDS ORDERED: ibuprofen tablet 400 MG TABLET PO ONE (19:10)
[2022-08-12 19:17] VITALS: BP 135/78
== END 2022-08-12 19:18 | disposition home or self-care (01) ==
LOC: ER 15:52
DX: N76.0 Acute vaginitis (principal); B96.89 Other specified bacterial agents as the cause of diseases classified elsewhere; G43.909 Migraine, unspecified, not intractable, without status migrainosus; J45.909 Unspecified asthma, uncomplicated; K21.9 Gastro-esophageal reflux disease without esophagitis; Z86.2 Personal history of diseases of the blood and blood-forming organs and certain disorders involving the immune mechanism; Z98.890 Other specified postprocedural states; Z88.0 Allergy status to penicillin; Z88.1 Allergy status to other antibiotic agents; Z79.899 Other long term (current) drug therapy
CPT/HCPCS: 76856; 81001; 81025; 87210; 93976; 99284

== ENCOUNTER 2022-11-06 18:40 | Emergency (ER) | payer MEDICAID ==
[~2022-11-06] VITALS: Ht 162.6 cm; Wt 111.4 kg
[2022-11-06 19:09] VITALS: BP 111/66
[2022-11-06] MEDS ORDERED: TRIA15CR61 TOP (19:33)
[2022-11-06] MEDS ORDERED: PRED20TA PO (19:33)
[2022-11-06] MEDS ORDERED: HYDR-3686 PO (19:33)
[2022-11-06] MEDS ORDERED: triamcinolone acetonide 40mg/ml inj IM ONE (19:35)
== END 2022-11-06 19:57 | disposition home or self-care (01) ==
LOC: ER 18:41
DX: L50.9 Urticaria, unspecified (principal); L24.9 Irritant contact dermatitis, unspecified cause; G43.909 Migraine, unspecified, not intractable, without status migrainosus; J45.909 Unspecified asthma, uncomplicated; Z87.19 Personal history of other diseases of the digestive system; Z88.0 Allergy status to penicillin; Z91.048 Other nonmedicinal substance allergy status; Z79.899 Other long term (current) drug therapy
CPT/HCPCS: 96372; 99283; J3301

== ENCOUNTER 2023-05-06 17:51 | Emergency (ER) | payer MEDICAID ==
[~2023-05-06] VITALS: Ht 162.6 cm; Wt 115.4 kg
[2023-05-06 18:45] LABS: EOSINOPHILS # (AUTO) 0.1 X10'3 (0-0.9); MONOCYTES # (AUTO) 0.4 X10'3 (0-0.9)
[2023-05-06 18:46] LABS: BASOPHILS % (AUTO) 0.5 % (0-1); EOSINOPHILS % (AUTO) 1.2 % (0-6); HEMATOCRIT 42.4 % (35.0-45.0); LYMPHOCYTES # (AUTO) 2.5 X10'3 (1.1-4.8); LYMPHOCYTES % (AUTO) 27.3 % (21-51); MEAN CORPUSCULAR HEMOGLOBIN 29.1 PG (27.0-31.0); MEAN CORPUSCULAR HGB CONC 35.3 g/dL (33.0-36.5); MEAN CORPUSCULAR VOLUME 82.4 FL (78-98); MEAN PLATELET VOLUME 6.8 FL (7.4-10.4); MONOCYTES % (AUTO) 4.9 % (2-12); NEUTROPHILS % (AUTO) 66.1 % (42-75); PLATELET COUNT 257 X10'3 (140-440); RED BLOOD COUNT 5.15 X10'6 (4.20-5.60); RED CELL DISTRIBUTION WIDTH 12.9 % (11.5-14.5)
[2023-05-06 19:00] LABS: ALANINE AMINOTRANSFERASE 32 U/L (12-78); ALBUMIN 3.6 G/DL (3.4-5.0); ALKALINE PHOSPHATASE 37 IU/L (46-116); ANION GAP 9 (8-16); ASPARTATE AMINO TRANSFERASE 20 U/L (10-37); BILIRUBIN,TOTAL 0.4 MG/DL (0.1-1.0); BLOOD UREA NITROGEN 22 MG/DL (7-18); BUN/CREATININE RATIO 25.6 (10.0-20.0); CALCIUM 9.1 MG/DL (8.5-10.1); CHLORIDE 103 MMOL/L (99-107); CREATININE 0.86 MG/DL (0.40-0.90); GLUCOSE 87 MG/DL (70-104); LIPASE 34 U/L (16-77); POTASSIUM 3.6 MMOL/L (3.5-5.1); SODIUM 138 MMOL/L (135-145); TOTAL CARBON DIOXIDE 26.4 MMOL/L (24-32); TOTAL PROTEIN 7.2 G/DL (6.4-8.2); eCRCL 83 ML/MIN; eGFR 78 ML/MIN
[2023-05-06 19:34] LABS: BILIRUBIN,URINE NEGATIVE (Neg); CLARITY,URINE CLOUDY (Clear); COLOR,URINE YELLOW (Yellow); GLUCOSE, URINE NEGATIVE (Neg); KETONES,URINE NEGATIVE (Neg); LEUKOCYTE ESTERASE ,URINE NEGATIVE (Neg); NITRITES, URINE NEGATIVE (Neg); OCCULT BLOOD,URINE TRACE-INTACT (Neg); PH,URINE 5.5 (4.8-8.0); PROTEIN,URINE NEGATIVE (Neg); UROBILINOGEN,URINE 0.2 E.U/dL (0.2-1.0)
[2023-05-06 19:35] LABS: URINE HCG NEGATIVE (NEG)
[2023-05-06 19:40] LABS: UA COLLECTION TYPE CLN CATCH MIDSTREAM
[2023-05-06 19:44] LABS: MUCUS STRANDS MANY /LPF (Neg); SQUAMOUS EPITHELIAL CELL,UR MANY /LPF (FEW); TRANSITIONAL EPI CELLS,URINE FEW /HPF
[2023-05-06 19:45] LABS: BACTERIA,URINE 1+ /HPF (Neg); RBC,URINE 0-2 /HPF (0-2); WBC,URINE 0-4 /HPF (0-4)
[2023-05-06] MEDS ORDERED: LOPE-144 PO (21:06)
[2023-05-06] MEDS ORDERED: FAMO-129 PO (21:07)
[2023-05-06] MEDS: loperamide 2mg capsule PO ONE (21:12)
[2023-05-06 21:47] VITALS: BP 136/85; PULSE 90; RESP 18; TEMP 99; O2SAT 98
== END 2023-05-06 22:30 | disposition home or self-care (01) ==
LOC: ER 17:52
DX: R19.7 Diarrhea, unspecified (principal); G43.909 Migraine, unspecified, not intractable, without status migrainosus; K21.9 Gastro-esophageal reflux disease without esophagitis; J45.909 Unspecified asthma, uncomplicated; Z88.0 Allergy status to penicillin; Z88.1 Allergy status to other antibiotic agents; Z79.899 Other long term (current) drug therapy
CPT/HCPCS: 36415; 80053; 81001; 81025; 83690; 85025; 99283